=== PATIENT | male | born 1995 | race Caucasian/White ===

== ENCOUNTER 2017-05-07 11:37 | Emergency (ER) | payer SELFPAY ==
[~2017-05-07] VITALS: Ht 182.9 cm; Wt 97.0 kg
[2017-05-07 11:44] VITALS: BP 172/77; PULSE 86; RESP 16; TEMP 97.2; O2SAT 97
[2017-05-07 12:20] LABS: AUTOMATED NEUTROPHIL # 4.9 TH/MM3 (1.8-7.7); BASOPHIL % 0.4 % (0.0-2.0); EOSINOPHIL # 0.1 TH/MM3 (0-0.4); EOSINOPHIL % 1.6 % (0.0-4.0); HEMATOCRIT 47.4 % (39.0-51.0); HEMOGLOBIN 16.3 GM/DL (13.0-17.0); LYMPH % 26.8 % (9.0-44.0); MEAN CELL VOLUME 86.3 FL (80.0-100.0); MEAN CORPUSCULAR HEMOGLOBIN 29.7 PG (27.0-34.0); MEAN CORPUSCULAR HGB CONC 34.4 % (32.0-36.0); MEAN PLATELET VOLUME 7.8 FL (7.0-11.0); MONO % 6.4 % (0.0-8.0); MONOCYTE # 0.5 TH/MM3 (0-0.9); NEUT % 64.8 % (16.0-70.0); PLATELET COUNT 228 TH/MM3 (150-450); RED CELL DISTRIBUTION WIDTH 12.7 % (11.6-17.2); WHITE BLOOD COUNT 7.5 TH/MM3 (4.0-11.0)
[2017-05-07 12:29] LABS: INTERNATIONAL NORMALIZED RATIO 1.1 RATIO; PROTHROMBIN TIME - PATIENT 10.7 SEC (9.8-11.6)
--- NOTE | 2017-05-07 12:38 | RADRPT ---
EXAM DATE/TIME: 05/07/2017 12:12 [place] COMPARISON: No previous studies available for comparison. INDICATIONS : Chest pressure on and off this week. MEDICAL HISTORY : None. SURGICAL HISTORY : None. ENCOUNTER: Initial ACUITY: 1 week PAIN SCORE: 2/10 LOCATION: Bilateral chest FINDINGS: PA and lateral views of the chest demonstrate the lungs to be symmetrically aerated without evidence of mass, infiltrate or effusion. The cardiomediastinal contours are unremarkable. Osseous structure s are intact. CONCLUSION: No acute disease. Mike Camp MD on May 07, 2017 at 12:37 Board Certified Radiologist. This report was verified electronically.
[2017-05-07 12:40] LABS: BICARBONATE 28.1 MEQ/L (21.0-32.0); BLOOD UREA NITROGEN 12 MG/DL (7-18); CALCIUM 8.5 MG/DL (8.5-10.1); CHLORIDE 103 MEQ/L (98-107); CREATININE 1.18 MG/DL (0.60-1.30); GLOMERULAR FILTRATION RATE 77 ML/MIN (>89); GLUCOSE,RANDOM 142 MG/DL (74-106); SODIUM (NA) 136 MEQ/L (136-145)
[2017-05-07 12:45] LABS: TROPONIN I LESS THAN 0.02 NG/ML (0.02-0.05)
[2017-05-07 13:19] LABS: BANDS 3 % (0-6); LYMPHOCYTES 25 % (9-44); MONOCYTES 3 % (0-8); MYELOCYTES 3 % (0-0); NEUTROPHIL # MANUAL DIFF 5.3 TH/MM3 (1.8-7.7); POLYS (SEG NEUTROPHILS) 64 % (16-70)
--- NOTE | 2017-05-08 11:37 | EKG ---
Date Performed: 05/07/2017 Time Performed: 11:57:47 PTAGE: 22 years EKG: Sinus rhythm WITH SINUS ARRHYTHMIA BORDERLINE RIGHT AXIS DEVIATION BORDERLINE ECG NO PREVIOUS TRACING DOCTOR: Josiah Lopez Interpretating Date/Time 05/08/2017 11:31:54
== END 2017-05-07 14:14 | disposition left against medical advice (07) ==
LOC: NED 11:37
DX: R00.2 Palpitations (principal); R94.31 Abnormal electrocardiogram [ECG] [EKG]; R07.89 Other chest pain; Z53.21 Procedure and treatment not carried out due to patient leaving prior to being seen by health care provider
CPT/HCPCS: 71046; 80048; 82550; 82552; 84484; 85007; 85027; 85610; 93005; 99281